=== PATIENT | male | born 1995 | race African-American/Black ===

== ENCOUNTER 2019-01-10 12:01 | Emergency (ER) | payer MEDICAID, OTHER ==
[~2019-01-10] VITALS: Ht 185.4 cm; Wt 117.9 kg
[2019-01-10 12:20] VITALS: BP 134/84
[2019-01-10] MEDS ORDERED: IBUPROFEN 800 MG TAB PO ONE (14:15)
== END 2019-01-10 14:23 | disposition home or self-care (01) ==
LOC: ER 12:12
DX: S92.515A Nondisplaced fracture of proximal phalanx of left lesser toe(s), initial encounter for closed fracture (principal); Z76.0 Encounter for issue of repeat prescription; F17.210 Nicotine dependence, cigarettes, uncomplicated; W01.0XXA Fall on same level from slipping, tripping and stumbling without subsequent striking against object, initial encounter; Y93.02 Activity, running; Y92.89 Other specified places as the place of occurrence of the external cause; Y99.8 Other external cause status
CPT/HCPCS: 73630; 99283; L3260